=== PATIENT | female | born 2000 | race African-American/Black ===

== ENCOUNTER 2019-01-23 20:35 | Emergency (ER) | payer SELFPAY ==
[~2019-01-23] VITALS: Ht 154.9 cm; Wt 64.0 kg
[2019-01-23 21:46] VITALS: Ht 154.9 cm; Wt 64.0 kg
[2019-01-23 22:38] LABS: PLATELET COUNT 250 x10^3mcL (130-400); RED CELL DISTRIBUTION WIDTH 12.1 % (11.5-14.5)
[2019-01-23 22:48] LABS: MONOCYTE 5 % (0-7); SEGMENTED NEUTROPHILS 86 % (37-75)
[2019-01-23 22:49] LABS: PLATELET MORPHOLOGY PLATELETS NORMAL; rbc morphology (normal/abnorm) NORMAL (NORMAL)
[2019-01-23 22:56] LABS: CALCIUM 9.9 mg/dL (8.5-10.1); CARBON DIOXIDE 23.9 mmol/L (21-32); CHLORIDE SERUM 103 mmol/L (98-107); CREATININE SERUM 1.1 mg/dL (0.6-1.0); GFR1 > 60 mL/min; GLUCOSE SERUM 122 mg/dL (74-106); POTASSIUM SERUM 3.6 mmol/L (3.5-5.1); SODIUM SERUM 140 mmol/L (136-145)
[2019-01-23 23:00] LABS: ALBUMIN 3.9 g/dL (3.4-5.0); ALKALINE PHOSPHATASE 61 U/L (46-116); ALT/SGPT 50 U/L (14-59); AMYLASE 97 U/L (25-115); AST/SGOT 23 U/L (15-37); BILIRUBIN TOTAL 0.52 mg/dL (0.20-1.00); LIPASE 42 IU/L (73-393)
[2019-01-23 23:57] VITALS: BP 107/58
== END 2019-01-23 23:57 | disposition home or self-care (01) ==
LOC: ED 20:35
PROVIDERS: Emergency Medicine
DX: F12.99 Cannabis use, unspecified with unspecified cannabis-induced disorder (principal); R10.13 Epigastric pain; R11.0 Nausea; R50.9 Fever, unspecified; Z90.89 Acquired absence of other organs
CPT/HCPCS: J1630; J7030